=== PATIENT | male | born 1990 | race Caucasian/White ===

== ENCOUNTER 2017-09-15 10:40 | Emergency (ER) | payer MEDICARE ==
[~2017-09-15] VITALS: Ht 182.9 cm; Wt 70.0 kg
[~2017-09-15 10:40] MED LIST: CEPHALEXIN500 MG PO; CREON24000 UNT PO; ROBITUSSIN AC10 ML PO
[2017-09-15 11:25] LABS: HEMATOCRIT 45.8 % (39.0-50.0); HEMOGLOBIN 15.2 g/dl (14.0-18.0); IMMATURE GRANULOCYTES 0.4 % (0.0-1.0); MEAN CELL VOLUME 87.1 fL CALC (80.0-100.0); MEAN CORPUSCULAR HGB 28.9 pG CALC (26.0-32.0); MEAN CORPUSCULAR HGB CONC 33.2 g/L CALC (32.0-36.0); NEUT# 13.87 thou/uL (1.82-7.42); RED BLOOD COUNT 5.26 mill/uL (4.70-6.10); RED CELL DISTRI WIDTH 14.3 % (11.5-15.5)
[2017-09-15 11:45] LABS: BUN 11 mg/dL (9-20); BUN/CREATININE RATIO 14 (12-20 (CALC)); CREATININE 0.8 mg/dL (0.7-1.3); GFR > 60 ML/MIN (>=60 (CALC)); GFR FOR AFR.AMER. > 60 ML/MIN (>=60 (CALC))
[2017-09-15 11:46] LABS: ANION GAP 19 (6-22 (CALC)); CARBON DIOXIDE 22 mmol/l (22-30); CHLORIDE 104 mmol/l (95-108); POTASSIUM 4.2 mmol/l (3.5-5.1); SODIUM 141 mmol/l (137-146)
[2017-09-15] MEDS ORDERED: VENTOLIN HFA IN (12:05)
[2017-09-15] MEDS ORDERED: PULMOZYME1 MG/ML IN (12:06)
[2017-09-15] MEDS ORDERED: REMERON15 MG PO (12:07)
[2017-09-15] MEDS ORDERED: HYPERTONIC SALINE (12:07)
[2017-09-15 12:22] LABS: INFLUENZA A NONE DETECTED (NONE DETECT); INFLUENZA B NONE DETECTED (NONE DETECT)
[2017-09-15] MEDS ORDERED: LEVAQUIN750 MG PO (12:35)
[2017-09-15] MEDS ORDERED: PROAIR HFA108 MCG/AC PO (12:35)
[2017-09-15] MEDS ORDERED: PREDNISONE50 MG PO (12:35)
[2017-09-15 12:43] VITALS: BP 147/80
== END 2017-09-15 13:02 | disposition home or self-care (01) ==
LOC: ED 10:40
PROVIDERS: Family Medicine
DX: J06.9 Acute upper respiratory infection, unspecified (principal); R06.02 Shortness of breath; R05 Cough

== ENCOUNTER 2018-02-07 16:51 | Emergency (ER) | payer OTHER, MEDICARE ==
[~2018-02-07] VITALS: Ht 182.9 cm; Wt 73.0 kg
[~2018-02-07 16:51] MED LIST changes: +HYPERTONIC SALINE; +LEVAQUIN750 MG PO; +PREDNISONE50 MG PO; +PROAIR HFA108 MCG/AC PO; +PULMOZYME1 MG/ML IN; +REMERON15 MG PO; +VENTOLIN HFA IN
[2018-02-07] MEDS ORDERED: NAPROSYN500 MG PO (17:57)
[2018-02-07] MEDS ORDERED: FLEXERIL PO (17:58)
[2018-02-07 18:18] VITALS: BP 126/88
== END 2018-02-07 18:36 | disposition left against medical advice (07) | DRG 563 ==
LOC: ED 16:51
DX: S83.92XA Sprain of unspecified site of left knee, initial encounter (principal); M54.2 Cervicalgia; E84.9 Cystic fibrosis, unspecified; V49.50XA Passenger injured in collision with unspecified motor vehicles in traffic accident, initial encounter; Z91.19 Patient's noncompliance with other medical treatment and regimen

== ENCOUNTER 2018-05-09 14:27 | Emergency (ER) | payer MEDICARE, MEDICAID ==
[~2018-05-09] VITALS: Ht 182.9 cm; Wt 60.0 kg
[~2018-05-09 14:27] MED LIST changes: +FLEXERIL PO; +NAPROSYN500 MG PO
[2018-05-09] MEDS ORDERED: IBUPROFEN600 MG PO (15:29)
[2018-05-09] MEDS ORDERED: FLEXERIL PO (15:29)
[2018-05-09 15:35] VITALS: BP 118/62
== END 2018-05-09 15:35 | disposition home or self-care (01) ==
LOC: ED 14:27
DX: M54.5 Low back pain (principal); S30.810A Abrasion of lower back and pelvis, initial encounter; W10.9XXA Fall (on) (from) unspecified stairs and steps, initial encounter; Y93.89 Activity, other specified; Y92.814 Boat as the place of occurrence of the external cause